=== PATIENT | female | born 1970 | race Caucasian/White ===

== ENCOUNTER 2018-09-04 18:17 | Inpatient (IN) ==
[2018-09-04] MEDS ORDERED: ASPIRIN 325 MG TABLET PO STA (18:51)
[2018-09-04] MEDS ORDERED: ONDANSETRON 4 MG/2 ML VIAL IV PRN ×2 (20:48→22:18)
[2018-09-04] MEDS ORDERED: diphenhydrAMINE CAP 25 MG CAPSULE PO PRN (20:48)
[2018-09-04] MEDS ORDERED: MAGNESIUM SULF RIDER 4 GM in PREMIX 1 EACH IV PRN ×2 (20:48→22:18)
[2018-09-04] MEDS ORDERED: MAGNESIUM SULF RIDER 2 GM in PREMIX 1 EACH IV PRN ×2 (20:48→22:18)
[2018-09-04] MEDS ORDERED: ERGOCALCIFEROL 50,000 UNIT CAPSULE PO SCH (21:00)
[2018-09-04] MEDS ORDERED: traZODone 50 MG TABLET PO SCH (21:00)
[2018-09-04] MEDS ORDERED: SODIUM CHLORIDE 0.9% 1,000 ML IV SCH ×2 (21:00→22:18)
[2018-09-04] MEDS ORDERED: ENOXAPARIN 40 MG/0.4 ML SYRINGE SUBCUT SCH (22:18)
[2018-09-04] MEDS ORDERED: ALBUTEROL/IPRATROPIUM 3 ML NEB RESP TX PRN (22:18)
[2018-09-04] MEDS ORDERED: MAGNESIUM SULF RIDER 2 GM in PREMIX 1 EACH IV ONE (22:18)
[2018-09-04] MEDS ORDERED: ASPIRIN CHEW 81 MG TABLET PO ONE (22:18)
[2018-09-04] MEDS ORDERED: POTASSIUM CHLORIDE 20 MEQ/15 ML UDCUP PO ONE (22:18)
[2018-09-04 23:16] LABS: Risk Ratio 2.28; VLDL CHOLESTEROL 20.6 MG/DL
[2018-09-05] MEDS: PANTOPRAZOLE 40 MG TABLET PO SCH ×2 (00:09→11:46)
[2018-09-05] MEDS: traZODone 50 MG TABLET PO SCH ×2 (00:11→20:26)
[2018-09-05] MEDS: ROSUVASTATIN 10 MG TABLET PO SCH ×2 (00:11→20:26)
[2018-09-05] MEDS: METOPROLOL TARTRATE 25 MG TABLET PO SCH ×4 (00:16→20:26)
[2018-09-05] MEDS: NITROGLYCERIN 2% OINT 1 INCH/GM PACK TOP SCH ×4 (00:17→11:51)
[2018-09-05] MEDS: busPIRone 15 MG TABLET PO SCH ×3 (00:17→20:26)
[2018-09-05] MEDS: MORPHINE 4 MG/1 ML VIAL IV PRN ×2 (00:55→20:33)
[2018-09-05 01:30] LABS: Albumin 3.7 G/DL (3.4-5.0); Bilirubin,Total 0.6 MG/DL (0.2-1.0); Calcium 8.5 MG/DL (8.5-10.1); Osmolality,Calculated 267.7 MOS/KG (273-304); Risk Ratio 2.38; Thyroid Stimulating Hormone 0.849 uIU/ml (0.358-3.74); Total Protein 7.1 G/DL (6.4-8.3); VLDL CHOLESTEROL 16.6 MG/DL
[2018-09-05 01:35] LABS: Basophils # 0.1 10*3/uL (0.0-0.2); Basophils % 1.4 % (0.0-0.8); Eosinophils # 0.2 10*3/uL (0.0-0.87); Eosinophils % 4.2 % (0.00-10.9); Hematocrit 29.9 VOL% (35.7-47.0); Hemoglobin 8.8 GM/DL (12.0-16.0); Immature Granulocytes % 0.2 %; Immature Granulocytes Absolute 0.01 #; Lymphocytes # 2.1 10*3/uL (1.4-4.0); Lymphocytes % 36.8 % (21.3-54.2); Mean Corpuscular HGB Conc 29.4 GM/DL (32-36); Mean Corpuscular Volume 64.4 FL (87-102); Mean Platelet Volume 9.5 FL (9.6-12.0); Monocytes % 8.8 % (1.7-12.7); Neutrophils % 48.6 % (38.7-73.9); Platelet Count 415 T/CUMM (130-400); Red Blood Count 4.64 MC/CUMM (3.8-5.5); Red Cell Distribution Width 20.6 % (9.3-17.3); White Blood Count 5.7 T/CUMM (4-12)
[2018-09-05] MEDS ORDERED: ENOXAPARIN 60 MG/0.6 ML SYRINGE SUBCUT SCH (07:00)
[2018-09-05 07:19] LABS: CKMB % 6.9 %
[2018-09-05 07:32] LABS: Troponin I 3.5 NG/ML (0.00-0.045)
[2018-09-05] MEDS ORDERED: POTASSIUM CHLORIDE RIDER 10 MEQ in PREMIX 1 EACH IV PRN (08:07)
[2018-09-05] MEDS ORDERED: DEXTROAMPHETAMINE AMPHETAMINE 15 MG PO SCH (09:00)
[2018-09-05] MEDS ORDERED: ASPIRIN CHEW 81 MG TABLET PO SCH (09:00)
[2018-09-05] MEDS ORDERED: PANTOPRAZOLE 40 MG TABLET PO SCH (09:00)
[2018-09-05] MEDS ORDERED: DIAZEPAM 5 MG TABLET PO ONE (10:30)
[2018-09-05] MEDS ORDERED: diphenhydrAMINE CAP 25 MG CAPSULE PO ONE (10:30)
[2018-09-05] MEDS ORDERED: LIDOCAINE 1% 20 ML VIAL ONE (11:46)
[2018-09-05] MEDS: buPROPion 75 MG TABLET PO SCH ×2 (11:46→22:49)
[2018-09-05] MEDS ORDERED: MIDAZOLAM 2 MG/2 ML VIAL ONE (12:03)
[2018-09-05] MEDS ORDERED: fentaNYL 100 MCG/2 ML VIAL ONE (12:23)
[2018-09-05] MEDS ORDERED: CLOPIDOGREL 75 MG TABLET PO ONE (13:31)
[2018-09-05 14:06] LABS: Barbiturates Screen,Urine Negative (Negative); Benzodiazepines Screen,Urine Negative (Negative); Cannabinoid Screen,Urine Negative (Negative); Opiate Screen,Urine Positive (Negative); Phencyclidine Screen,Urine Negative (Negative)
[2018-09-05] MEDS: ISOSORBIDE MONONITRATE 30 MG TABLET PO SCH ×2 (17:12→17:24)
[2018-09-06 05:13] VITALS: BP 111/75
[2018-09-06 05:29] LABS: Basophils # 0.1 10*3/uL (0.0-0.2); Basophils % 1.5 % (0.0-0.8); Eosinophils # 0.3 10*3/uL (0.0-0.87); Eosinophils % 4.7 % (0.00-10.9); Hematocrit 30.6 VOL% (35.7-47.0); Hemoglobin 8.7 GM/DL (12.0-16.0); Immature Granulocytes % 0.2 %; Immature Granulocytes Absolute 0.01 #; Lymphocytes # 2.3 10*3/uL (1.4-4.0); Lymphocytes % 38.1 % (21.3-54.2); Mean Corpuscular HGB Conc 28.4 GM/DL (32-36); Mean Corpuscular Volume 66.1 FL (87-102); Mean Platelet Volume 9.3 FL (9.6-12.0); Monocytes % 13.7 % (1.7-12.7); Neutrophils % 41.8 % (38.7-73.9); Platelet Count 405 T/CUMM (130-400); Red Blood Count 4.63 MC/CUMM (3.8-5.5)
[2018-09-06 05:42] LABS: Calcium 8.9 MG/DL (8.5-10.1)
[2018-09-06] MEDS ORDERED: CLOPIDOGREL 75 MG TABLET PO SCH (09:00)
[2018-09-06] MEDS ORDERED: ASPIRIN EC 81 MG TABLET PO SCH (09:00)
[2018-09-06] MEDS: busPIRone 15 MG TABLET PO SCH (09:02)
[2018-09-06] MEDS: METOPROLOL TARTRATE 25 MG TABLET PO SCH (09:02)
[2018-09-06] MEDS: ISOSORBIDE MONONITRATE 30 MG TABLET PO SCH (09:03)
[2018-09-06] MEDS: buPROPion 75 MG TABLET PO SCH (09:03)
[2018-09-06] MEDS: PANTOPRAZOLE 40 MG TABLET PO SCH (09:03)
== END 2018-09-06 11:00 | disposition home or self-care (01) | DRG 281 ==
LOC: EDUNIT# → EDBD → N.ED 18:17 → N.TELEN 19:19 → N.TELES 09-05 15:15
PROVIDERS: ADMIT Internal Medicine Cardiovascular Disease; ATTEND Internal Medicine Cardiovascular Disease
PROC: CLCCHCL (ICD-10-PCS; 2018-09-05 11:45)